=== PATIENT | female | born 1955 | race Caucasian/White ===

== ENCOUNTER 2019-07-19 01:17 | Inpatient (IN) | payer OTHER ==
[~2019-07-19] VITALS: Ht 167.6 cm; Wt 92.6 kg
[2019-07-19 02:12] LABS: PLATELET COUNT 223 x10^3mcL (130-400)
[2019-07-19 02:25] LABS: BASOPHIL % 0 % (0-2); RED CELL DISTRIBUTION WIDTH 16.7 % (11.5-14.5)
[2019-07-19 02:36] LABS: ALKALINE PHOSPHATASE 65 U/L (46-116); ALT/SGPT 64 U/L (14-59); AST/SGOT 159 U/L (15-37); BILIRUBIN TOTAL 0.55 mg/dL (0.20-1.00); CALCIUM 7.7 mg/dL (8.5-10.1); CARBON DIOXIDE 14.8 mmol/L (21-32); CHLORIDE SERUM 116 mmol/L (98-107); CREATININE SERUM 1.7 mg/dL (0.6-1.0); GFR1 32 mL/min; GLUCOSE SERUM 86 mg/dL (74-106); POTASSIUM SERUM 5.1 mmol/L (3.5-5.1); SODIUM SERUM 149 mmol/L (136-145)
[2019-07-19 02:37] LABS: CK-MB 30.8 ng/mL (0-3.6)
[2019-07-19 02:39] LABS: UA SPECIFIC GRAVITY 1.025 (1.005-1.035); microscopic required? YES; urine erythrocyte NEGATIVE (NEGATIVE)
[2019-07-19 02:43] LABS: ALBUMIN 1.7 g/dL (3.4-5.0); TOTAL PROTEIN, SERUM 4.8 g/dL (6.4-8.2)
[2019-07-19 03:23] LABS: rbc morphology (normal/abnorm) ABNORMAL (NORMAL)
[2019-07-19 03:24] LABS: ovalocyte/elliptocyte 2+; tear drop cell (dacryocyte) 1+
[2019-07-19 05:24] LABS: CHOLESTEROL/HDL RATIO 1.7; PHOSPHOROUS 7.9 mg/dL (2.5-4.9)
[2019-07-19 05:31] LABS: T3 TOTAL 1.12 ng/mL
[2019-07-19 05:42] LABS: FREE T4 1.03 ng/dL (0.76-1.46); FREE THYROXINE INDEX 2.6 ug/dL (1.4-4.5)
[2019-07-19 06:32] VITALS: BP 90/50
[2019-07-19 09:47] LABS: ovalocyte/elliptocyte 2+; rbc morphology (normal/abnorm) ABNORMAL (NORMAL)
[2019-07-19 12:00] VITALS: BP 87/38
[2019-07-19 13:16] LABS: rbc morphology (normal/abnorm) ABNORMAL (NORMAL)
[2019-07-19 16:00] VITALS: BP 93/31
[2019-07-19 22:10] VITALS: BP 106/39
[2019-07-20 04:33] VITALS: BP 118/64
[2019-07-20 06:10] LABS: BASOPHIL % 0 % (0-2); CALCIUM 7.5 mg/dL (8.5-10.1); CARBON DIOXIDE 22.8 mmol/L (21-32); MAGNESIUM 2.1 mg/dL (1.8-2.4); PLATELET COUNT 88 x10^3mcL (130-400); POTASSIUM SERUM 4.6 mmol/L (3.5-5.1); RED CELL DISTRIBUTION WIDTH 17.2 % (11.5-14.5)
[2019-07-20 06:13] LABS: rbc morphology (normal/abnorm) ABNORMAL (NORMAL)
[2019-07-20 11:45] VITALS: BP 122/55
[2019-07-20 15:30] VITALS: BP 121/52
[2019-07-20 17:32] LABS: BASOPHIL % 0.1 % (0-2)
[2019-07-20 17:33] LABS: PLATELET COUNT 75 x10^3mcL (130-400)
[2019-07-20 19:10] VITALS: BP 105/63
[2019-07-20 23:25] VITALS: BP 126/59
[2019-07-21 03:12] VITALS: BP 122/64
[2019-07-21 05:18] LABS: ALKALINE PHOSPHATASE 59 U/L (46-116); ALT/SGPT 740 U/L (14-59); CALCIUM 7.5 mg/dL (8.5-10.1); CARBON DIOXIDE 25.5 mmol/L (21-32); CHLORIDE SERUM 122 mmol/L (98-107); CREATININE SERUM 0.7 mg/dL (0.6-1.0); GFR1 > 60 mL/min; GLUCOSE SERUM 122 mg/dL (74-106); PHOSPHOROUS 1.5 mg/dL (2.5-4.9); POTASSIUM SERUM 3.5 mmol/L (3.5-5.1); SODIUM SERUM 155 mmol/L (136-145)
[2019-07-21 05:20] LABS: AST/SGOT 1641 U/L (15-37); TOTAL PROTEIN, SERUM 4.5 g/dL (6.4-8.2)
[2019-07-21 05:54] LABS: BASOPHIL % 0.3 % (0-2)
[2019-07-21 05:55] LABS: PLATELET COUNT 53 x10^3mcL (130-400); RED CELL DISTRIBUTION WIDTH 17.4 % (11.5-14.5)
[2019-07-21 05:57] LABS: rbc morphology (normal/abnorm) ABNORMAL (NORMAL)
[2019-07-21 07:30] VITALS: BP 123/69
[2019-07-21 12:00] VITALS: BP 137/53
[2019-07-21 12:24] LABS: BASOPHIL % 0.2 % (0-2)
[2019-07-21 12:42] LABS: ALKALINE PHOSPHATASE 59 U/L (46-116); ALT/SGPT 647 U/L (14-59); BILIRUBIN TOTAL 0.9 mg/dL (0.20-1.00); CALCIUM 7.7 mg/dL (8.5-10.1); CARBON DIOXIDE 26.7 mmol/L (21-32); CHLORIDE SERUM 120 mmol/L (98-107); CREATININE SERUM 0.6 mg/dL (0.6-1.0); GFR1 > 60 mL/min; GLUCOSE SERUM 93 mg/dL (74-106); POTASSIUM SERUM 3.4 mmol/L (3.5-5.1); SODIUM SERUM 151 mmol/L (136-145)
[2019-07-21 13:04] LABS: PLATELET COUNT 59 x10^3mcL (130-400); RED CELL DISTRIBUTION WIDTH 17.1 % (11.5-14.5)
[2019-07-21 13:12] LABS: TOTAL PROTEIN, SERUM 4.7 g/dL (6.4-8.2)
[2019-07-21 13:14] LABS: AST/SGOT 1335 U/L (15-37)
[2019-07-21 14:00] LABS: rbc morphology (normal/abnorm) ABNORMAL (NORMAL)
[2019-07-21 16:03] LABS: BASOPHIL % 0.3 % (0-2)
[2019-07-21 16:04] LABS: PLATELET COUNT 66 x10^3mcL (130-400); RED CELL DISTRIBUTION WIDTH 16.4 % (11.5-14.5)
[2019-07-21 16:31] VITALS: BP 104/47
[2019-07-21 17:52] VITALS: BP 104/47
[2019-07-21 18:04] VITALS: Ht 167.6 cm; Wt 92.6 kg
== END 2019-07-21 19:40 | disposition short-term general hospital (02) | DRG 280 ==
LOC: ED 01:17 → IC 05:26 → DU 07-21 14:43
PROVIDERS: Emergency Medicine; Internal Medicine; Internal Medicine Gastroenterology; ADMIT Internal Medicine
PROC: 02HV03Z Insertion of Infusion Device into Superior Vena Cava, Open Approach (ICD-10-PCS; 2019-07-19)
PROC: B543ZZA Ultrasonography of Right Jugular Veins, Guidance (ICD-10-PCS; 2019-07-19)
PROC: 30233N1 Transfusion of Nonautologous Red Blood Cells into Peripheral Vein, Percutaneous Approach (ICD-10-PCS; 2019-07-19)
PROC: 0DJ08ZZ Inspection of Upper Intestinal Tract, Via Natural or Artificial Opening Endoscopic (ICD-10-PCS; principal; 2019-07-19 09:30)
DX: K70.9 Alcoholic liver disease, unspecified (principal); R57.1 Hypovolemic shock; N17.0 Acute kidney failure with tubular necrosis; I21.A1 Myocardial infarction type 2; E43 Unspecified severe protein-calorie malnutrition; E87.2 Acidosis; D62 Acute posthemorrhagic anemia; D68.9 Coagulation defect, unspecified; D69.59 Other secondary thrombocytopenia; I83.228 Varicose veins of left lower extremity with both ulcer of other part of lower extremity and inflammation; L97.821 Non-pressure chronic ulcer of other part of left lower leg limited to breakdown of skin; I48.92 Unspecified atrial flutter; I95.9 Hypotension, unspecified; K92.2 Gastrointestinal hemorrhage, unspecified; R74.0 Nonspecific elevation of levels of transaminase and lactic acid dehydrogenase [LDH]; E87.0 Hyperosmolality and hypernatremia; Z68.25 Body mass index [BMI] 25.0-25.9, adult; E87.70 Fluid overload, unspecified; F10.10 Alcohol abuse, uncomplicated; E87.8 Other disorders of electrolyte and fluid balance, not elsewhere classified; I47.1 Supraventricular tachycardia; E88.09 Other disorders of plasma-protein metabolism, not elsewhere classified; Z91.19 Patient's noncompliance with other medical treatment and regimen; Z90.6 Acquired absence of other parts of urinary tract; Z91.14 Patient's other noncompliance with medication regimen; Z90.49 Acquired absence of other specified parts of digestive tract
CPT/HCPCS: 36556; 36600; 43235; 83880; 84439; A4628; C9113; G0378; G0480; J0171; J0690; J1170; J1200; J1610; J1642; J1940; J2060; J2250; J2310; J2354; J2405; J2543; J2765; J2916; J3010; J3370; J3430; J3490; J7030; J7042; J7050; J7070; J8597; P9016; P9047; Q0092; Q9966; Q9967